=== PATIENT | male | born 1980 | race Caucasian/White ===

== ENCOUNTER 2017-03-30 13:04 | Emergency (ER) | payer OTHER ==
[2017-03-30 13:12] VITALS: RESP 18; TEMP 98.7; BMI 37.2
[2017-03-30] MEDS ORDERED: Sodium Chloride 0.9% 1,000 ML IV STA ×2 (13:26→17:07)
--- NOTE | 2017-03-30 13:40 | ED PDOC ---
Arrival/HPI - General Chief Complaint: Back Pain Time Seen by Provider: 03/30/17 13:18 Historian: Patient - History of Present Illness Narrative History of Present Illness (Text): 03/30/17 13:37 36 year old male whose past medical history includes diabetes and kidney stones presents to the emergency department complaining of right flank pain. Patient reports she has had kidney stones in the past on the left, last evaluated at [facility] 2-3 weeks ago. Patient reports he had a procedure where they "broke the stones up" and followed up with his urologist at [facility]. Today patient reports sudden onset of severe right flank pain while driving associated with nausea. He states this feels similar to his previous symptoms. Denies urinary symptoms, fever, or other complaints. Time/Duration: Prior to Arrival Symptom Onset: Sudden Symptom Course: Unchanged Modifying Factors (Text): None Past Medical History - Provider Review Nursing Documentation Reviewed: Yes - Infectious Disease Hx of Infectious Diseases: None - Renal Hx Kidney Stones: Yes - Endocrine/Metabolic Hx Diabetes Mellitus Type 1: Yes - Gastrointestinal Hx Pancreatitis: Yes - Psychiatric Hx Substance Use: No Family/Social History - Physician Review Nursing Documentation Reviewed: Yes Family/Social History: Unknown Family HX Smoking Status: Unknown If Ever Smoked Hx Alcohol Use: No Hx Substance Use: No Allergies/Home Meds Allergies/Adverse Reactions: Allergies No Known Allergies Allergy (Verified 03/30/17 13:26) Home Medications: Home Meds Medication Instructions Recorded Confirmed Insulin Lispro Mix 75/25 [HumaLog 15 units SQ Q12H 03/30/17 03/30/17 MIX 75/25] Review of Systems - Physician Review All systems were reviewed & negative as marked: Yes - Review of Systems Constitutional: absent: Fevers Gastrointestinal: Nausea Genitourinary Male: absent: Dysuria, Frequency, Hematuria Musculoskeletal: Other (Right flank pain) Physical Exam Vital Signs Reviewed: Yes Vital Signs Temp Pulse Resp BP Pulse Ox 03/30/17 17:05 66 18 157/101 H 99 03/30/17 15:05 69 18 160/101 H 99 03/30/17 13:11 98.7 F 74 18 172/110 H 97 Temperature: Afebrile Blood Pressure: Hypertensive Pulse: Regular Respiratory Rate: Normal Appearance: Positive for: Well-Appearing, Non-Toxic, Uncomfortable Pain Distress: Moderate Mental Status: Positive for: Alert and Oriented X 3 - Systems Exam Head: Present: Atraumatic, Normocephalic Pupils: Present: PERRL Extroacular Muscles: Present: EOMI Conjunctiva: Present: Normal Mouth: Present: Moist Mucous Membranes Neck: Present: Normal Range of Motion Respiratory/Chest: Present: Clear to Auscultation, Good Air Exchange. No: Respiratory Distress, Accessory Muscle Use Cardiovascular: Present: Regular Rate and Rhythm, Normal S1, S2. No: Murmurs Abdomen: Present: Normal Bowel Sounds. No: Tenderness, Distention, Peritoneal Signs Back: Present: Normal Inspection. No: CVA Tenderness Upper Extremity: Present: Normal Inspection. No: Cyanosis, Edema Lower Extremity: Present: Normal Inspection. No: Edema Neurological: Present: GCS=15, CN II-XII Intact, Speech Normal Skin: Present: Warm, Dry, Normal Color. No: Rashes Psychiatric: Present: Alert, Oriented x 3, Normal Insight, Normal Concentration Medical Decision Making ED Course and Treatment: the pt urinated some sediment/sub-mm stones which was caught and sent to lab for analysis. the pt reported feeling better after rx and was comfortable w dc disc plan for f/u w urology (he already has a urologist in the city) return if worse - Lab Interpretations Lab Results: 03/30/17 13:40 03/30/17 13:40 Lab Results 03/30/17 16:02: Urine Color Yellow, Urine Appearance Clear, Urine pH 6.0, Ur Specific [place] 1.025, Urine Protein 100 H, Urine Glucose (UA) 250 H, Urine Ketones Negative, Urine Blood Large H, Urine Nitrate Negative, Urine Bilirubin Negative, Urine Urobilinogen 0.2, Ur Leukocyte Esterase Negative, Urine RBC 25 - 30, Urine WBC 1 - 3, Ur Epithelial Cells 0 - 2, Amorphous Sediment Few, Urine Bacteria Mod 03/30/17 13:40: Sodium 140, Potassium 3.9, Chloride 104, Carbon Dioxide 24, Anion Gap 16, BUN 19, Creatinine 0.9, Est GFR ( Amer) > 60, Est GFR (Non- Af Amer) > 60, Random Glucose 191 H, Calcium 9.8, Total Bilirubin 0.7, AST 37, ALT 58 H, Alkaline Phosphatase 69, Total Protein 7.7, Albumin 4.6, Globulin 3.1 , Albumin/Globulin Ratio 1.5 03/30/17 13:40: WBC 5.9, RBC 4.65, Hgb 13.4 L, Hct 39.9 L, MCV 85.8, MCH 28.8, MCHC 33.6, RDW 13.1, Plt Count 223, MPV 9.6, Gran % 60.4, Lymph % (Auto) 27.2, [place] % (Auto) 8.0 H, Eos % (Auto) 4.1, Baso % (Auto) 0.3, Gran # 3.57, Lymph # 1.6, [place] # 0.5, Eos # 0.2, Baso # 0.02 - Medication Orders Current Medication Orders: Sodium Chloride (Sodium Chloride 0.9%) 1,000 mls @ 999 mls/hr IV .Q1H1M STA Stop: 03/30/17 18:07 Last Admin: 03/30/17 17:10 Dose: 999 mls/hr Discontinued Medications Sodium Chloride (Sodium Chloride 0.9%) 1,000 mls @ 999 mls/hr IV .Q1H1M STA Stop: 03/30/17 14:26 Last Admin: 03/30/17 13:51 Dose: 999 mls/hr Ketorolac Tromethamine (Toradol) 10 mg IVP STAT STA Stop: 03/30/17 13:27 Last Admin: 03/30/17 13:50 Dose: 10 mg Re-Assess: [facility] Pain Assessment Document 03/30/17 14:50 JOL (Rec: 03/30/17 16:56 JOL [place] [id number]) Pain Reassessment Is this a pain reassessment? Yes Sleep Is patient sleeping during reassessment? No Presence of Pain Presence of Pain Yes Morphine Sulfate (Morphine) 4 mg IVP STAT STA Stop: 03/30/17 14:49 Last Admin: 03/30/17 14:50 Dose: 4 mg Re-Assess: [facility] Pain Assessment Document 03/30/17 15:50 JOL (Rec: 03/30/17 16:56 JOL [place] [id number]) Pain Reassessment Is this a pain reassessment? Yes Sleep Is patient sleeping during reassessment? No Presence of Pain Presence of Pain Yes Morphine Sulfate (Morphine) Confirm Administered Dose 4 mg .ROUTE .STK-MED ONE Stop: 03/30/17 14:51 Last Admin: 03/30/17 14:50 Dose: Morphine Sulfate (Morphine) 6 mg IVP STAT STA Stop: 03/30/17 16:55 Last Admin: 03/30/17 17:10 Dose: 6 mg Ondansetron HCl (Zofran Inj) 4 mg IVP ONCE ONE Stop: 03/30/17 13:27 Last Admin: 03/30/17 13:51 Dose: 4 mg - Scribe Statement The provider has reviewed the documentation as recorded by the Casey Rodrigues Provider Scribe Attestation: All medical record entries made by the Casey were at my direction and personally dictated by me. I have reviewed the chart and agree that the record accurately reflects my personal performance of the history, physical exam, medical decision making, and the department course for this patient. I have also personally directed, reviewed, and agree with the discharge instructions and disposition. Disposition/Present on Arrival - Present on Arrival Any Indicators Present on Arrival: No History of DVT/PE: No History of Uncontrolled Diabetes: No Urinary Catheter: No History of Decub. Ulcer: No History Surgical Site Infection Following: None - Disposition Have Diagnosis and Disposition been Completed?: Yes Diagnosis: Renal colic Disposition Time: 17:55 Patient Problems: Current Active Problems Problem Status Onset Renal colic Acute Condition: IMPROVED Discharge Instructions (ExitCare): Renal Colic (ED) Additional Instructions: Please follow up with a urologist. Return to the ER for any worsening symptoms, fever, repeated vomiting, or for any other concerns. Referrals: Jaswinder Rose, [Primary Care Provider] - Follow up with primary
[2017-03-30 13:50] LABS: ADD MANUAL DIFF? NO
[2017-03-30 13:53] LABS: BASO # 0.02 K/mm3 (0.0-2.0); BASO % 0.3 % (0.0-3.0); EOS # 0.2 (0.0-0.7); EOS % 4.1 % (1.5-5.0); GRAN # 3.57 (1.4-6.5); GRAN % 60.4 % (50.0-68.0); HEMATOCRIT 39.9 % (42.0-52.0); LYMPH # 1.6 (1.2-3.4); LYMPH % 27.2 % (22.0-35.0); MEAN CELL VOLUME 85.8 fL (80.0-105.0); MEAN CORPUSCULAR HEMOGLOBIN 28.8 pg (25.0-35.0); MEAN CORPUSCULAR HGB CONC 33.6 g/dl (31.0-37.0); MEAN PLATELET VOLUME 9.6 fl (7.0-11.0); MONO # 0.5 (0.1-0.6); PLATELET COUNT 223 10^3/uL (120.0-450.0); RED CELL DISTRIBUTION WIDTH 13.1 % (11.5-14.5); WHITE BLOOD COUNT 5.9 10^3/ul (4.5-11.0)
[2017-03-30 14:02] LABS: ALB/GLOB RATIO 1.5 (1.1-1.8); ALKALINE PHOSPHATASE 69 U/L (38-133); ALT/SGPT 58 U/L (7-56); AST/SGOT 37 U/L (15-59); BILIRUBIN,TOTAL 0.7 mg/dL (0.2-1.3); BLOOD UREA NITROGEN 19 mg/dL (7-21); CALCIUM 9.8 mg/dL (8.4-10.5); CARBON DIOXIDE 24 mmol/L (21-33); CHLORIDE 104 mmol/L (98-107); GFR AFRICAN-AMERICAN > 60; GLUCOSE,RANDOM 191 mg/dL (70-110); POTASSIUM 3.9 mmol/L (3.6-5.0); SODIUM 140 mmol/L (132-148); TOTAL PROTEIN 7.7 g/dL (5.8-8.3)
[2017-03-30] MEDS ORDERED: Morphine 4 mg/ml ISec IVP STA ×2 (14:48→16:49)
[2017-03-30] MEDS ORDERED: Morphine 4 mg/ml ISec ONE (14:50)
[2017-03-30 16:30] LABS: URINE BILIRUBIN NEGATIVE (NEGATIVE); URINE BLOOD LARGE (NEGATIVE); URINE GLUCOSE (UA) 250 mg/dL (NEGATIVE); URINE KETONE NEGATIVE (NEGATIVE); URINE LEUKOCYTE ESTERASE NEGATIVE Leu/uL (NEGATIVE); URINE PROTEIN 100 mg/dL (<30 mg/dL); URINE UROBILINOGEN 0.2 E.U./dL (<1 E.U./dL)
[2017-03-30 16:37] LABS: URINE APPEARANCE CLEAR (CLEAR); URINE COLOR YELLOW (YELLOW)
[2017-03-30 16:44] LABS: URINE EPITHELIAL CELLS 0 - 2 /hpf (0-5); URINE RBC 25 - 30 /hpf (0-2)
[2017-03-30 16:45] LABS: URINE AMORPHOUS SEDIMENT FEW; URINE BACTERIA MOD (NEG)
[2017-03-30 17:18] VITALS: BP 157/101; PULSE 66; O2SAT 99
== END 2017-03-30 18:18 | disposition home or self-care (01) ==
LOC: ED 13:04
DX: N23 Unspecified renal colic (principal); E10.9 Type 1 diabetes mellitus without complications
CPT/HCPCS: 80053; 81001; 82948; 85025; 87086; 96361; 96374; 96375; 96376; 99284; J1885; J2270; J2405; J7040